=== PATIENT | male | born 1940 | race Caucasian/White ===

== ENCOUNTER 2017-05-22 08:05 | Outpatient (CLI) | payer MEDICARE ==
[2017-05-22 10:16] LABS: Anion Gap 10 mmol/L (10-20); BUN (Urea Nitrogen) 16 mg/dL (8.4-25.7); Calc. Creatinine Clearance 0 mL/min (70-130); Calcium 9.5 mg/dL (7.8-10.44); Carbon Dioxide 31 mmol/L (23-31); Chloride 103 mmol/L (98-107); Estimated GFR-MDRD 84
[2017-05-22 10:20] LABS: #Eosinphils 0.5 thou/uL (0.0-0.7); #Lymphocytes 1.7 thou/uL (1.20-3.40); #Monocytes 0.7 thou/uL (0.11-0.59); #Neutrophils 4.1 thou/uL (1.40-6.50); %Basophils 0.2 % (0.0-1.0); %Eosinophils 6.7 % (0.0-10.0); %Lymphocytes 24.6 % (21.0-51.0); %Monocytes 9.7 % (0.0-10.0); Hematocrit 44.5 % (42.0-52.0); Mean Platelet Volume 7.9 fL (7.4-10.4); Red Blood Cell (RBC) Count 4.58 mill/uL (4.70-6.10)
--- NOTE | 2017-06-10 13:14 | EKG ---
Test Reason : Blood Pressure : / mmHG Vent. Rate : 061 BPM Atrial Rate : 061 BPM P-R Int : 182 ms QRS Dur : 124 ms QT Int : 420 ms P-R-T Axes : 019 -33 020 degrees QTc Int : 422 ms Sinus rhythm with Premature atrial complexes Left axis deviation Non-specific intra-ventricular conduction delay Abnormal ECG Confirmed by MARTÍN MERRITT MD ([id number]) on 06/10/2017 1:14:27 PM Referred By: DELANO Confirmed By:MARTÍN MERRITT MD
== END 2017-05-22 08:06 | disposition home or self-care (01) ==
LOC: LABBT 08:05
PROVIDERS: ATTEND Orthopaedic Surgery
DX: Z01.818 Encounter for other preprocedural examination (principal)
CPT/HCPCS: 80048; 85025; 93005; 93010

== ENCOUNTER 2017-05-26 05:45 | Day surgery (SDC) | payer MEDICARE ==
[2017-05-22 08:39] VITALS: BMI 27.0
[2017-05-26] MEDS ORDERED: CEFAZOLIN/Water 2 GM/20 ML SYRINGE ONE (06:26)
[2017-05-26] MEDS ORDERED: Diprivan 20 ML ONE (06:33)
--- NOTE | 2017-05-26 09:31 | OP ---
PREOPERATIVE DIAGNOSIS: Intraoperative drainage of right knee. 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 SURGEON: Mayo Rincon M.D. ANESTHESIA: General. BLOOD LOSS: Minimal. SPECIMENS: None. DRAINS: None. COMPLICATIONS: None. DESCRIPTION OF PROCEDURE: Scope was placed in the lateral portal and probe was placed in medial port al. He had some chondromalacia of the patella and lateral compartment was largely intact. The ACL w as intact. Medial compartment findings were as described above. I removed a loose body from the med ial compartment. This is a fairly small, about 3 mm loose body that was removed with a shaver and fairchild d a complex tear involving most of the medial meniscus and debrided using basket forceps and smoothed using a 4-0 full radius resector. I did do a mild abrasion chondroplasty. I searched the gutters, the suprapatellar pouch and the popliteus recess for additional loose bodies and I milked the poplite us recess for additional loose bodies and none were found. The knee was drained. Sterile dressings applied.
[2017-05-26] MEDS ORDERED: Bupivacaine PF 0.5% 30 ML VIAL ONE (14:56)
[2017-05-26] MEDS ORDERED: Bupivacaine HCl 0.5%/Epinephrine 1:200,000/PF 30 ml Vial ONE (14:56)
[2017-05-26] MEDS ORDERED: Ondansetron HCl/PF 4 MG/2 ML Vial ONE (15:36)
[2017-05-26] MEDS ORDERED: Propofol 200 MG/20 ML VIAL ONE (15:36)
== END 2017-05-26 11:05 ==
LOC: SDC 05:45
PROVIDERS: ATTEND Orthopaedic Surgery
PROC: 0SBC4ZZ Excision of Right Knee Joint, Percutaneous Endoscopic Approach (ICD-10-PCS; principal; 2017-05-26)
DX: M23.41 Loose body in knee, right knee (principal); S83.241A Other tear of medial meniscus, current injury, right knee, initial encounter; M22.41 Chondromalacia patellae, right knee; Z88.6 Allergy status to analgesic agent
CPT/HCPCS: 29879; 97139; G8978; G8979; G8980; J0670; J2405; J2704; S0020